=== PATIENT | male | born 1965 | race African-American/Black ===

== ENCOUNTER 2021-08-02 05:47 | Inpatient (IN) | payer OTHER, SELFPAY ==
[2021-08-02] VITALS (41 sets, daily range): BP systolic 98–122; BP diastolic 53–89; PULSE 90–158; RESP 20–110; TEMP 36.3–39; O2SAT 50–100
--- NOTE | ~2021-08-02 | XR_ITS ---
XR abdomen NG/feed tube insert DATE: 08/03/2021 22:36 INDICATION: Nasogastric/orogastric tube placement TECHNIQUE: Portable AP view on 08/03/2021 at 2230 hours COMPARISON: None FINDINGS: Nasogastric tube is coiled within the stomach, distal tip overlying gastric antrum. Severe patchy consolidating pulmonary infiltrates IMPRESSION: NG tube in stomach Reviewed, dictated and finalized at [facility]. Reviewed, dictated and finalized at [facility]. IMPRESSION: NG tube in stomach
--- NOTE | ~2021-08-02 | XR_ITS ---
XR chest PICC line DATE: 08/03/2021 13:37 INDICATION: Right upper extremity PICC line placement TECHNIQUE: Portable AP chest on 08/03/2021 at 1330 hours COMPARISON: 08/03/2021 portable AP chest at 1046 hours FINDINGS: Interval placement of right upper extremity PIC catheter, the tip overlying superior vena c nicolas. Severe diffuse patchy bilateral consolidating pulmonary infiltrates persist. No pneumothorax or pleur al effusion is evident. IMPRESSION: Right upper extremity PIC catheter tip overlies superior vena cava Reviewed, dictated and finalized at [facility]. Reviewed, dictated and finalized at [facility].
--- NOTE | ~2021-08-02 | XR_ITS ---
XR chest ET placement DATE: 08/03/2021 22:36 INDICATION: Intubation; evaluate ET tube position TECHNIQUE: Portable AP chest on 08/03/2021 at 2229 hours COMPARISON: 08/03/2021 portable AP chest at 1330 hours FINDINGS: ET tube tip is within 12 mm above the [place]. [place] range is 2 5 cm. Proximal repositioning is recommended. NG tube is noted in the stomach. Persistent severe patchy consolidating infiltrates throughout both lungs. IMPRESSION: ET tube 12 mm above [place]; ideal range is 2-5 cm Reviewed, dictated and finalized at [facility]. Reviewed, dictated and finalized at [facility].
--- NOTE | ~2021-08-02 | XR_ITS ---
XR chest 1V portable DATE: 08/04/2021 05:29 INDICATION: Respiratory failure TECHNIQUE: Portable AP chest on 08/04/2021 at 0521 hours COMPARISON: 08/03/2021 portable AP chest at 2229 hours FINDINGS: ET tube in satisfactory position 3.2 cm above [place]. NG tube in stomach. Right upper extremity PIC catheter in superior vena cava. Persistent severe diffuse bilateral patchy consolidating infiltrates throughout both lungs. IMPRESSION: Persistent severe diffuse bilateral pulmonary patchy consolidating infiltrates Reviewed, dictated and finalized at [facility].
--- NOTE | ~2021-08-02 | XR_ITS ---
XR chest 1V portable DATE: 08/03/2021 10:52 INDICATION: Pneumonia TECHNIQUE: Portable upright AP view on 08/03/2021 at 1046 hours COMPARISON: 08/02/2021 portable AP chest at 0634 hours FINDINGS: Severe patchy consolidating infiltrates persist throughout both lungs, without improvement since 08/02/2021. No pleural effusion is evident. No pneumothorax is detected. IMPRESSION: Persistent severe diffuse patchy consolidating infiltrates throughout both lungs Reviewed, dictated and finalized at location [facility]. IMPRESSION: Persistent severe diffuse patchy consolidating infiltrates througho ut both lungs
--- NOTE | ~2021-08-02 | XR_ITS ---
XR chest 1V portable DATE: 08/02/2021 06:38 INDICATION: Shortness of breath TECHNIQUE: Portable AP chest on 08/02/2021 at 0634 hours COMPARISON: None FINDINGS: There are extensive patchy consolidating infiltrates throughout both lungs. Differential di agnosis includes pulmonary edema, pneumonia. Pulmonary mass lesions including metastatic disease are not excluded. Cardiomegaly. Diffuse osteopenia. Mild dextroscoliosis of the thoracic spine. Diffuse idiopathic skeletal hyperostosis of the thoracic spine. IMPRESSION: Extensive patchy consolidating infiltrates throughout both lungs. Pulmonary mass lesions are not excluded. Cardiomegaly Reviewed, dictated and finalized at location [facility]. IMPRESSION: Extensive patchy consolidating infiltrates throughout both lungs. P ulmonary mass lesions are not excluded. Cardiomegaly
--- NOTE | 2021-08-02 05:52 | ECG_ITS ---
Measurements Intervals [place] Rate: 156 P: NV: 0 QRS: 9 QRSD: 96 T: 242 QT: 311 QTc: 501 Interpretive Statements ATRIAL FLUTTER/TACHYCARDIA WITH RAPID VENTRICULAR RESPONSE CONSIDER INFERIOR INFARCT, AGE INDETERMINATE BORDERLINE ST-T WAVE ABNORMALITY- ANTEROLAT/HIGH LAT LEADS ABNORMAL ECG Electronically Signed On 08-02-2021 15:54:52 CDT by Tj Koroma D.O.
[2021-08-02] MEDS: METOPROLOL TARTRATE INJ 5 MG/5 ML VIAL IV PUSH ×2 (06:08→06:29)
[2021-08-02 06:11] LABS: Basophils Absolute Auto 0.1 K/mm3 (0.0-0.1); Basophils Percent Auto 0.3 % (0.2-1.2); Eosinophils Percent Auto 0.3 % (0-4.4); Hematocrit 38.7 % (42.0-52.0); Hemoglobin 12.3 g/dL (14.0-18.0); Immature Granulocyte Absolute 0.09 K/mm3 (0.00-0.031); Immature Granulocyte Percent A 0.6 % (0-0.5); Lymphocytes Absolute Auto 0.89 K/mm3 (0.9-3.2); Lymphocytes Percent Auto 5.9 % (18.3-44.2); Mean Corpuscular HGB Conc 31.8 g/dl (32-36); Mean Corpuscular Hemoglobin 30.8 pg (26-34); Mean Corpuscular Volume 96.8 fl (80-100); Mean Platelet Volume 10.5 fl (7.4-10.4); Monocytes Absolute Auto 0.9 K/mm3 (0.1-0.6); Monocytes Percent Auto 5.9 % (2.6-8.5); Neutrophils Absolute Auto 13.1 K/mm3 (1.3-6.7); Platelet Count Result 291 k/mm3 (150-375); Red Cell Distribution Width 14.6 % (11.5-14.5)
[2021-08-02 06:17] LABS: Alveolar/Arterial O2 Gradient 525.8 mmHg; Base Excess ABG -2.1 mEq/l (+/-2.0); Carboxyhemoglobin 1.2 % THb (0-2.0); Fractional Inspired Oxygen 100 %; HCO3 ABG 21.6 mEq/l (22.0-26.0); Methemoglobin ABG 0.3 %THb (0-1.5); Oxygen Content ABG 17.2 %vol (16.0-22.0); Oxyhemoglobin 97.2 % THb (90.0-100.0); PCO2 ABG 33.5 mmHg (35.0-45.0); PO2 ABG 153.7 mmHg (80.0-100.0); PO2 FiO2 Ratio Arterial Blood 1.54 %; Reduced Hemoglobin 1.3 %THb (0-5.0); Total Hemoglobin 12.4 g/dL (12.0-18.0); pH ABG 7.427 (7.350-7.450)
[2021-08-02 06:18] LABS: Device NON-INVASIVE VENT; Modified Allen's Test Pass; Non-Invasive Expiratory Pressure 6 CMH2O; Non-Invasive Inspiratory Pressure 12 CMH2O; Non-Invasive Vent Rate 20 /MIN; Site Drawn LEFT RADIAL
[2021-08-02 06:20] LABS: Alanine Aminotransferase 33 U/L (6-50); Albumin Level 3.9 g/dL (3.5-5.1); Alkaline Phosphatase 166 U/L (38-126); Anion Gap 7 mmol/L (8-16); Aspartate Amino Transferase 56 U/L (17-59); Bilirubin,Total 0.8 mg/dL (0.2-1.3); Blood Urea Nitrogen 27 mg/dL (9-20); Calcium 9.1 mg/dL (8.4-10.2); Carbon Dioxide 25 mmol/L (22-30); Chloride 104 mmol/L (98-107); Estimated CRCL calculation 96 ml/min; Estimated Glomerular Filt Rate > 60; Glucose 111 mg/dL (65-110); Sodium 136 mmol/L (137-145)
[2021-08-02 06:22] LABS: INR 2.3; Prothrombin Time 24.9 Seconds (11.1-14.7)
[2021-08-02 06:23] LABS: Partial Thromboplastin Time 49.1 SECONDS (22.3-36.8)
--- NOTE | 2021-08-02 06:26 | ED.SOB ---
HPI - SOB/Dyspnea General Chief Complaint: Shortness of Breath/Dyspnea <Surya Boswell MD - Last Filed: 08/02/21 06:56> Stated Complaint: sob x 2 days on cpap 90-95% <Surya Boswell MD - Last Filed: 08/02/21 06:56> Time Seen by Provider: 08/02/21 06:58 <Surya Boswell MD - Last Filed: 08/02/21 06:56> History of Present Illness HPI Narrative: Patient is a 56-year-old male with history of CHF who is also oxygen dependent that presents ER with shortness of breath. Reports shortness of breath worsening over the last 2 days. Associated with racing heart. Has history of atrial flutter. Sees a apple checker at [facility]. Picked up by EMS and patient's oxygen saturation was in the 80s. Denies fevers or chills or sweats. Reports some chest tightness. Denies nausea vomiting. No lower extremity swelling. Reports recently hospitalized related to get a lot of fluid off so he could breathe better. Patient receives his care at [facility]. Apparently patient has lung injury from previous COVID infection as well. <Surya Boswell MD - Last Filed: 08/02/21 06:56> Related Data Allergies/Adverse Reactions: Allergies Allergy/AdvReac Type Severity Reaction Status Date / Time No Known Allergies Allergy Verified 08/02/21 07:46 <Surya Boswell MD - Last Filed: 08/02/21 06:56> Review of Systems Review of Systems: All systems reviewed & are unremarkable except as noted in HPI and below <Surya Boswell MD - Last Filed: 08/02/21 06:56> Constitutional: Constitutional: Denies chills, Denies fatigue and Denies fever(s) <Surya Boswell MD - Last Filed: 08/02/21 06:56> ENT: Denies nasal congestion and Denies sore throat <Surya Boswell MD - Last Filed: 08/02/21 06:56> Cardiovascular: Cardiovascular: Reports chest pain, Reports rapid heart rate and Denies radiating jaw, neck or arm pain <Surya Boswell MD - Last Filed: 08/02/21 06:56> Respiratory: Respiratory: Denies chest congestion, Denies cough, Reports dyspnea and Reports wheezing <Surya Boswell MD - Last Filed: 08/02/21 06:56> Gastrointestinal: Gastrointestinal: Denies abdominal pain, Denies nausea and Denies vomiting <Surya Boswell MD - Last Filed: 08/02/21 06:56> Musculoskeletal: Musculoskeletal: Denies back pain and Denies myalgias <Surya Boswell MD - Last Filed: 08/02/21 06:56> Neurologic: Denies syncope and Denies headache(s) <Surya Boswell MD - Last Filed: 08/02/21 06:56> PMFSH Past Medical History Medical History: Medical History (Updated 08/02/21 @ 07:48 by Stacey Shaw MD) Atrial flutter Congestive heart failure COPD (chronic obstructive pulmonary disease) Oxygen dependent 2.5 to 3 L GERD (gastroesophageal reflux disease) Hypertension <Surya Boswell MD - Last Filed: 08/02/21 06:56> Surgical History Surgical History: Surgical History (Updated 08/02/21 @ 06:31 by Surya Boswell MD) No history of previous surgery <Surya Boswell MD - Last Filed: 08/02/21 06:56> Social History Social History: Social History (Updated 08/02/21 @ 06:32 by Surya Boswell MD) Social History: Non-smoker <Surya Boswell MD - Last Filed: 08/02/21 06:56> Exam Narrative: GENERAL: Uncomfortable-appearing, well-nourished, and in mild distress. HEAD: Normocephalic, atraumatic. EYES: PERRL and EOMI. ENT: Mucous membranes moist. CHEST: Scant faint wheezing worse at bases. Increased respiratory rate. HEART: Tachycardic and regular. Normal peripheral pulses. ABDOMEN: Soft, nontender, nondistended. EXTREMITIES: Normal range of motion. No edema. SKIN: Warm, dry, no rash. NEURO: Alert and oriented x3. PSYCH: Normal mood and affect. <Surya Boswell MD - Last Filed: 08/02/21 06:56> Course Course Emergency Course: Patient signed out to me as history of A. flutter, presenting with dyspnea in RVR. He is started on Cardizem push and d
[2021-08-02 06:38] LABS: NT Pro B Type Natriuretic Pept 3270 pg/mL (5-100); Troponin I 0.016 ng/mL (0.000-0.034)
[2021-08-02] MEDS: FUROSEMIDE INJ 40 MG/4 ML VIAL IV PUSH ×2 (06:57→16:07)
[2021-08-02] MEDS: dilTIAZem 100 MG/100 ML 100 MG/100 ML BAG IV CONT (07:00)
[2021-08-02] MEDS: dilTIAZem HCl INJ 25 MG/5 ML VIAL 10 MG IV PUSH ×2 (07:00→08:07)
[2021-08-02] MEDS: cefTRIAXone 2 GM in SODIUM CHLORIDE 0.9% IV 100 ML 200 ML IVPB (07:53)
--- NOTE | 2021-08-02 09:38 | ADMGEN ---
This patient, Austyn Alfonso, was admitted to IMU Room 210-01 at 0933. Patient/family oriented to hospital policies and general routines including ID bracelet, bed and alarms, visiting hours, pain management, procedures, bathroom and other care routines, personal items, smoking policy, room service/diet, and visiting hours. Information on how to activate the Rapid Response Team has been discussed. Patient/Family are encouraged to report perceived risks to care and to ask questions if they do not understand what they are told or what they should do.
[2021-08-02] MEDS: WATER FOR IRRIGATION, STERILE 1,000 ML BOTTLE 1000 ML (11:48)
[2021-08-02] MEDS: METOPROLOL TARTRATE TAB 25 MG, METOPROLOL TARTRATE TAB 12.5 MG 37.5 MG PO ×2 (14:56→21:42)
--- NOTE | 2021-08-02 15:29 | PM.CNCAR ---
Assessment and Plan Assessment and plan (1) Atrial flutter with rapid ventricular response: Code(s): I48.92 - Unspecified atrial flutter Status: Acute Assessment and Plan: Heart rate control strategy with medications for now. Patient may require repeat CORNEL guided cardioversion to restore sinus rhythm if refractory and or poorly tolerating medications. Heart rate controlled at this time will attempt to wean diltiazem and escalate oral metoprolol. Continue systemic anticoagulation with Xarelto for stroke risk reduction If heart rate poorly controlled will need to resume diltiazem infusion. (2) Acute on chronic heart failure with preserved ejection fraction: Code(s): I50.33 - Acute on chronic diastolic (congestive) heart failure Status: Acute Assessment and Plan: History preserved LV systolic function EF 55-60% by echocardiogram 06/04/2021 at [facility]. Likely multifactorial decompensation secondary to probable worsening respiratory status, possible pneumonia as well as development of atrial flutter with RVR. Continue IV diuresis, accurate input and output, daily weight. CHF counseling/management. (3) Chronic respiratory failure with hypoxia: Code(s): J96.11 - Chronic respiratory failure with hypoxia Status: Acute Assessment and Plan: O2 supplementation, bronchodilator therapy. Antibiotics per primary service. He had a recent CT as documented in HPI. Chest x-ray findings as reported appear to be consistent in that regard. Patient reports problems requiring O2 supplementation since severe infection with COVID and associated lung injury. (4) COVID-19 long hauler manifesting chronic dyspnea: Code(s): R06.09 - Other forms of dyspnea; U09.9 - Post COVID-19 condition, unspecified Status: Acute Assessment and Plan: As above. (5) HTN (hypertension), benign: Code(s): I10 - Essential (primary) hypertension Status: Acute Assessment and Plan: Stable. Continue ARB as BP and renal function permit. (6) MANUELA on CPAP: Code(s): G47.33 - Obstructive sleep apnea (adult) (pediatric); Z99.89 - Dependence on other enabling machines and devices Status: Acute Assessment and Plan: Compliance with CPAP. (7) Morbid obesity with BMI of 40.0-44.9, adult: Code(s): E66.01 - Morbid (severe) obesity due to excess calories; Z68.41 - Body mass index [BMI] 40.0-44.9, adult Status: Acute Assessment and Plan: Lifestyle modification, weight loss. History of Present Illness History of Present Illness Consult date/time: Date of service: 08/02/21 15:29 Requesting physician: Stacey Shaw MD Reason For Visit: Aflutter in rvr/dyspnea/hypoxia Narrative: Patient is a very pleasant 56-year-old gentleman recently discharged from [place] for A/C HFpEF followed by Dr. Yusuf (Cardiology) with past medical history significant for paroxysmal atrial flutter status post CORNEL guided cardioversion, hypertension, chronic hypoxic respiratory failure on home oxygen history of COVID respiratory failure, MANUELA on CPAP, mild pulmonary hypertension who was discharged approximately 1 week ago when he noted gradual progression fatigue, exertional dyspnea particularly the preceding 2 days associated with rapid heart rate. He states he was in sinus rhythm during last hospitalization where he was initially diagnosed with atrial flutter proximally 2 months ago and had been maintaining sinus rhythm status post cardioversion. He claims compliance with medications and CPAP with exception of the past 2 nights due to his shortness of breath. He was unable to walk across the room without having to stop prior to admission. He denies chest pain, near-syncope or syncope. No bleeding, recent fevers, chills or other illnesses. Upon arrival of EMS he was noted be hypoxic with oxygen saturations 80s. He wears chronic O2 3 L at home and has been compliant. He reports some ti
[2021-08-02] MEDS: FAMOTIDINE 20 MG TABLET PO (16:05)
[2021-08-02] MEDS: RIVAROXABAN 20 MG TABLET PO (16:07)
[2021-08-02] MEDS: ACETAMINOPHEN 325 MG TABLET 650 MG PO (16:34)
[2021-08-02 18:14] LABS: SARS-CoV-2 RNA PCR Negative
--- NOTE | 2021-08-02 20:41 | PM.IMHP ---
H&P: HPI History of Present Illness Date/Time: Patient was placed observation status for expected length of stay less than 23 hours for management, will plan to re-evaluate tomorrow for improvement. 08/02/21 1230 Chief Complaint: Shortness of breath Narrative: Mr. Alfonso is a 56-year-old gentleman who presented emergency room with complaints of shortness of breath that began a few days ago. Patient states that he does wear oxygen at home at 2-1/2-3 L since he had COVID in September of 2020. Patient states that over the last few days he has had increasing shortness of breath but this morning was significantly worsened he called EMS to come to the emergency room for further evaluation. Patient denies being told or being aware of having any coronary artery disease, myocardial infarction, or stroke. Denies any cough. Patient states he does have a history of congestive heart failure and does weigh himself daily and has had no significant weight gain. Upon evaluation in emergency room patient was noted to be in atrial fibrillation with rapid ventricular response. Patient was placed on a Cardizem drip and Cardiology was consulted. Patient's chest x-ray also showed extensive patchy consolidating infiltrates throughout both lungs. Pulmonary mass lesions are not excluded. Cardiomegaly. Initially patient was placed on BiPAP and he could not tolerate the BiPAP and was placed on high-flow oxygen and his saturations have been doing very well. Patient denied any lightheadedness, dizziness, syncopal, or near syncopal episodes. Patient denied any palpitations or racing of his heart and states that he has just had shortness of breath that has been increasing. Patient has a known history of congestive heart failure diastolic in type, hypertension, atrial fibrillation status post CORNEL guided cardioversion, chronic hypoxic respiratory failure on home oxygen with a history of COVID respiratory failure, obstructive sleep apnea with compliance of CPAP use, and mild pulmonary hypertension. Review of Systems Review of Systems: A 12 point review of systems was completed patient all pertinent positive and negative per HPI the remainder are unremarkable. 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 GERD (gastroesophageal reflux disease) HTN (hypertension), benign Hypertension MANUELA on CPAP Surgical History Surgical History No history of previous surgery Family History Family History Mother Cancer Sibling Cancer Father Cancer Social History Social History Social History: Non-smoker Smoking status: Never smoker Second hand tobacco smoke exposure: No Alcohol intake: former Substance use: never Spiritual care concerns: No Meds Home Medications and Allergies Home Medications Medication Instructions Recorded Confirmed Type albuterol 90 mcg/actuation aerosol 2 mcg inhalation PRN PRN Wheezing 08/02/21 08/02/21 History inhaler allopurinol 300 mg tablet 1 tablet PO DAILY 08/02/21 08/02/21 History cholecalciferol (vitamin D3) 125 125 mcg PO DAILY 08/02/21 08/02/21 History mcg (5,000 unit) tablet dicyclomine 10 mg capsule 1 cap PO TIDWMEAL 08/02/21 08/02/21 History famotidine 20 mg tablet 1 tablet PO BID 08/02/21 08/02/21 History ferrous sulfate 325 mg (65 mg 1 tablet PO DAILY 08/02/21 08/02/21 History iron) tablet (FeroSul) furosemide 40 mg tablet 1 tablet PO BID 08/02/21 08/02/21 History losartan 25 mg tablet 1 tablet PO DAILY 08/02/21 08/02/21 History metoprolol tartrate 25 mg tablet 1 tablet PO BID 08/02/21 08/02/21 History montelukast
[2021-08-02] MEDS: MONTELUKAST SODIUM 10 MG TABLET PO (21:42)
[2021-08-02] MEDS: dilTIAZem 100 MG/100 ML 100 MG/100 ML BAG 15 MG IV CONT (23:08)
[2021-08-03] VITALS (41 sets, daily range): BP systolic 88–133; BP diastolic 53–91; PULSE 91–152; RESP 24–56; TEMP 36.3–38.1; O2SAT 89–97
--- NOTE | 2021-08-03 01:43 | PCRCNOTE ---
RT found pt breathing 45-60 times a minute with saturations in the high 80's and low nineties. Pt was on a CPAP of 7, 60% Fi02. RT increased CPAP to 9, Fi02 80%. Pt was still breathing 45-60 BPM after the change. Per DR's orders, I switched the patient over to 10/5 RR 18 and 80% Fi02. Pt's saturations increased to 97%. Pt has a respiratory rate of 55, DR witnessed and made the decision to administer Ativan per RN.
--- NOTE | 2021-08-03 01:47 | PC.NURSE ---
0130 08/03/21 Dr Acevedo and Selina Alarcon RT assessing patient. Patient on bipap breathing 40-50 respirations per minute. Pt able to have conversation and states he feels better than when he first came in. Intubation status discussed and patient is weighing options if WOB does not improve or deteriorates. At this time patient wants to stay on bipap and doesn't think he would want to be on a ventilator but will discuss with family today.
[2021-08-03] MEDS: IPRATROPIUM BR 0.02% INH SOLN 0.5 MG/2.5 ML VIAL INHALATION (02:06)
[2021-08-03] MEDS: ALBUTEROL SULFATE NEB 2.5 MG/3 ML INH INHALATION (02:06)
[2021-08-03] MEDS: LORazepam INJ (*CRX) 2 MG/ML VIAL 0.5 MG IV PUSH (03:49)
[2021-08-03] MEDS: dilTIAZem 100 MG/100 ML 100 MG/100 ML BAG 15 MG IV CONT ×3 (04:45→17:54)
[2021-08-03 05:05] LABS: Basophils Percent Auto 0.2 % (0.2-1.2); Eosinophils Absolute Auto 0.1 K/mm3 (0-0.3); Eosinophils Percent Auto 0.4 % (0-4.4); Hematocrit 36.9 % (42.0-52.0); Hemoglobin 11.6 g/dL (14.0-18.0); Immature Granulocyte Absolute 0.09 K/mm3 (0.00-0.031); Immature Granulocyte Percent A 0.6 % (0-0.5); Lymphocytes Absolute Auto 1.16 K/mm3 (0.9-3.2); Lymphocytes Percent Auto 7.2 % (18.3-44.2); Mean Corpuscular HGB Conc 31.4 g/dl (32-36); Mean Corpuscular Hemoglobin 30.6 pg (26-34); Mean Corpuscular Volume 97.4 fl (80-100); Mean Platelet Volume 10.5 fl (7.4-10.4); Monocytes Absolute Auto 1.4 K/mm3 (0.1-0.6); Monocytes Percent Auto 8.5 % (2.6-8.5); Neutrophils Absolute Auto 13.4 K/mm3 (1.3-6.7); Neutrophils Percent Auto 83.1 % (45.5-73.1); Platelet Count Result 252 k/mm3 (150-375); Red Blood Count 3.79 M/mm3 (4.6-6.20); Red Cell Distribution Width 14.4 % (11.5-14.5); White Blood Count 16.1 K/mm3 (4.5-10.0)
[2021-08-03 05:18] LABS: Alanine Aminotransferase 31 U/L (6-50); Albumin Level 3.9 g/dL (3.5-5.1); Alkaline Phosphatase 124 U/L (38-126); Anion Gap 6 mmol/L (8-16); Aspartate Amino Transferase 56 U/L (17-59); Bilirubin,Total 1.9 mg/dL (0.2-1.3); Blood Urea Nitrogen 24 mg/dL (9-20); Calcium 9.1 mg/dL (8.4-10.2); Carbon Dioxide 29 mmol/L (22-30); Chloride 100 mmol/L (98-107); Estimated CRCL calculation 105 ml/min; Estimated Glomerular Filt Rate > 60; Glucose 101 mg/dL (65-110); Magnesium 1.8 mg/dL (1.6-2.3); Potassium 4.4 mmol/L (3.4-5.0); Sodium 135 mmol/L (137-145)
[2021-08-03] MEDS: FUROSEMIDE INJ 40 MG/4 ML VIAL IV PUSH (06:08)
[2021-08-03] MEDS: METOPROLOL TARTRATE TAB 25 MG, METOPROLOL TARTRATE TAB 12.5 MG 37.5 MG PO (06:08)
[2021-08-03] MEDS: hydrOXYzine HCL 25 MG TABLET PO (06:11)
[2021-08-03] MEDS: CHOLECALCIFEROL 1,000 UNITS TABLET 5000 UNITS PO (08:04)
[2021-08-03] MEDS: FAMOTIDINE 20 MG TABLET PO (08:04)
[2021-08-03] MEDS: POTASSIUM CHLORIDE 20 MEQ TABLET.ER PO (08:04)
[2021-08-03] MEDS: allopurinoL 300 MG TABLET PO (08:04)
[2021-08-03] MEDS: FERROUS SULFATE 324 MG TABLET PO (08:05)
[2021-08-03] MEDS: FLUTICASONE/UMECLIDIN/VILANTER 100-62.5-25 MCG ELLIPTA 1 PUFF INHALATION (08:10)
--- NOTE | 2021-08-03 10:22 | PM.IMPN ---
Progress Note: A&P Assessment and Plan (1) Atrial flutter with rapid ventricular response: Code(s): I48.92 - Unspecified atrial flutter Status: Acute Assessment and Plan: Cardiology has been consult and do appreciate further recommendations. Patient is currently on a Cardizem drip and Cardiology is recommending to increase patient's metoprolol and wean Cardizem drip off. Patient is already on anticoagulation and will continue with home anticoagulation. Patient has undergone a previous CORNEL guided cardioversion and Cardiology states they may have to do this in a patient's heart rate cannot be controlled medication. (2) Acute on chronic heart failure with preserved ejection fraction: Code(s): I50.33 - Acute on chronic diastolic (congestive) heart failure Status: Acute Assessment and Plan: Will start Lasix 40 mg IV b.i.d. to assist with diuresis. Will have daily weights and accurate I&Os. (3) HTN (hypertension), benign: Code(s): I10 - Essential (primary) hypertension Status: Acute Assessment and Plan: Will resume patient's home medications once verified home medication list and adjust medications accordingly for optimal blood pressure control. (4) Community acquired pneumonia: Code(s): J18.9 - Pneumonia, unspecified organism Status: Acute Assessment and Plan: Patient did receive azithromycin as well as Rocephin in the emergency room. Will continue with current regimen with patient receiving antibiotics every 24 hours. Have requested records from [facility] since patient has never been at this establishment have no previous chest x-ray CT scan to compare today's chest x-ray to. Will have CT of chest without contrast performed when patient is able to tolerate lying flat. (5) Chronic respiratory failure with hypoxia: Code(s): J96.11 - Chronic respiratory failure with hypoxia Status: Acute Assessment and Plan: Patient's COVID was negative. Patient does have a leukocytosis and chest x-ray does show possible pneumonia. Patient is on high-flow oxygen at 15 L at this time. We will wean oxygen to keep saturations above 90%. Additional Plan 08/03/2021 Plan is to continue with oxygen support and IV antibiotics. Monitor culture and chest x-ray report. Subjective Date/time seen: 08/03/21 10:22 Patient was seen during the morning rounds today. Patient has mild shortness of breath. Patient is on BiPAP. No chest pain.No abdominal pain, nausea, no vomiting. Mood stable. Review of Systems Review of Systems: All systems reviewed & are unremarkable except as noted in HPI and below (The history and physical examination.) Exam Narrative: Constitutional: Patient is well-nourished in no acute distress. Patient is alert and oriented x3 HEENT: Moist mucous membranes. No scleral icterus. No lymphadenopathy. Neck: No carotid bruits noted no JVD noted Lungs: Patient has decreased lung sounds with fine crackles noted bilateral bases. Cardiovascular: Apical pulse is irregularly irregular, S1 variable S2, no S3-S4. Abdomen: Soft, round, and nontender. No palpable masses. Extremities: No edema. Nontender. Skin: No rashes or lesions. Warm and dry. Skin is intact. Neurological: No focal neurological deficits. Cranial nerves II-XII grossly intact. Psychiatric: Cooperative, appropriate mood, and affect Objective Data Vital Signs Vital Signs: Vital Signs - 24 hr 08/02/21 10:38 08/02/21 10:41 08/02/21 12:00 Temperature 36.8 C Pulse Rate 93 Respiratory Rate 40 H Blood Pressure 106/79 Pulse Oximetry 96 96 96 Oxygen Delivery High Flow Therapy with Na Oxygen Flow Rate 15 Fraction of Inspired Oxygen 08/02/21 12:00 08/02/21 12:00 08/02/21 14:38 Temperature Pulse Rate 97 126 H Respiratory Rate Blood Pressure Pulse Oximetry 96 95 Oxygen Delivery High Flow Therapy with Na Oxygen Flow Rate 15 Fraction of I
--- NOTE | 2021-08-03 11:18 | WPDCNINT ---
Assessment and Plan Assessment and plan (1) Acute and chronic respiratory failure with hypoxia: Code(s): J96.21 - Acute and chronic respiratory failure with hypoxia Status: Acute Assessment and Plan: Acute on chronic Respiratory failure which is multifactorial likely secondary to combination of pneumonia and heart failure. patient has underlying lung disease from COVID 19 infection that he had last year. He was on 3 L nasal cannula at baseline assistive of chronic lung disease. ARDS is another possibility chest x-ray shows diffuse bilateral infiltrates. elevated WBC and elevated BNP congestive heart failure may have been worsened due to aflutter with RVR COVID-19 PCR was negative check influenza check low urine Legionella and pneumococcal antigen continue broad-spectrum antibiotics Zosyn and Levaquin. Add vancomycin for Gram-positive coverage check sputum culture if able to obtain consult pulmonary patient currently on BiPAP and tachypneic. I have adjusted his settings to 15/8 and he is on 70% FiO2 I was start Precedex infusion for anxiolytics effect patient may need intubation and invasive mechanical ventilation. Patient until now has been refusing intubation and told me that he is not sure whether he wants are not. He wanted me to talk to his daughter. I spoke to patient's daughter by phone and she again wants to talk to her dad and is on her way to visit him. Will revisit this issue when she arrived to have a concrete plan in case his respiratory status further deteriorates or does not improve. ABG reviewed [place] CT angiogram of the chest 07/14/2021 prominent mediastinal lymph nodes increase compared to prior study 1.5 x 1.4 cm anterior mediastinal node adjacent to the ascending thoracic aorta likely reactive multifocal areas of interstitial thickening and ground-glass opacities again seen mildly increased in size and number pulmonary artery enlarged 4.7 cm, no pulmonary embolism. I will plan to obtain a repeat CT scan of the chest once patient is more stable or if he in case he gets intubated to allow safe transport to Radiology Request to obtain records from [facility] has been faxed Consult pulmonary (2) Atrial flutter with rapid ventricular response: Code(s): I48.92 - Unspecified atrial flutter Status: Acute Assessment and Plan: continue Cardizem infusion and p.o. metoprolol heart rate is in acceptable range at this time continue Xarelto I anticipate Precedex infusion will help with rate control (3) COVID-19 long hauler manifesting chronic dyspnea: Code(s): R06.09 - Other forms of dyspnea; U09.9 - Post COVID-19 condition, unspecified Status: Acute Assessment and Plan: patient on home O2 3 L by nasal cannula since since he had COVID last year (4) Community acquired pneumonia: Code(s): J18.9 - Pneumonia, unspecified organism Status: Acute Assessment and Plan: see above (5) Acute on chronic heart failure with preserved ejection fraction: Code(s): I50.33 - Acute on chronic diastolic (congestive) heart failure Status: Acute Assessment and Plan: echo 06/04/2021 EF 55-60% normal RV function mild pulmonary hypertension no significant valvular heart disease no pericardial effusion. symptoms may have been exacerbated by uncontrolled atrial flutter check echocardiogram adjust Lasix dose Additional Plan DVT prophylaxis - Xarelto Stress ulcer prophylaxis - change Pepcid to PPI IV Nutrition - NPO Total Critical Care Time - 40 minutes Due to a high probability of clinically significant, life threatening deterioration, the patient required my highest level of preparedness to intervene emergently and I personally spent this critical care time directly and personally managing the patient. This critical care time included obtaining a history; examining the patient; pulse oximetry; ordering and review
--- NOTE | 2021-08-03 12:00 | PC.NURSE ---
This patient, Austyn Alfonso, was received from [[id number]] on 08/03/21 at 1200. Patient/family oriented to unit policies and routines report received from Funmi Easley RN
[2021-08-03] MEDS: dexmedeTOMIDine 400 MCG/100 ML 400 MCG/100 ML BAG 6.92 MCG IV CONT (12:01)
[2021-08-03 12:40] LABS: Influenza A QL RT-PCR Negative (Negative); Influenza B QL RT-PCR Negative (Negative)
[2021-08-03] MEDS: levoFLOXacin 500 MG/D5W 100 ML 500 MG/100 ML BAG 100 MG IVPB (12:56)
--- NOTE | 2021-08-03 13:02 | PM.PNCARD ---
Progress Note: A&P Assessment and Plan (1) Acute and chronic respiratory failure with hypoxia: Code(s): J96.21 - Acute and chronic respiratory failure with hypoxia Status: Acute Assessment and Plan: Patient developed acute worsening respiratory failure no longer benefitting from noninvasive positive-pressure ventilation support. Discussed with critical care. Transfer to ICU. Suspect patient will require intubation if unable to stabilized with noninvasive positive-pressure ventilation. Agree with IV diuretics, antibiotics, bronchodilator therapy. Checks x-ray again reveals severe bilateral infiltrates. Repeat CT chest. He has required O2 supplementation since severe infection with COVID and associated lung injury which is likely complicating clinical picture. ARDS another consideration. Check ABG. Defer to Critical Care in this regard. Patient is critically ill guarded prognosis. Blood cultures from 08/02 x2 negative to date. Continue broad-spectrum IV antibiotics. Spent 27 minutes in the care of this patient at bedside including discussions, examination, chart review, medical decision-making, and documentation. (2) Atrial flutter with rapid ventricular response: Code(s): I48.92 - Unspecified atrial flutter Status: Acute Assessment and Plan: Heart rate control strategy with medications for now. Patient may require repeat CORNEL guided cardioversion to restore sinus rhythm if refractory and or poorly tolerating medications. Heart rate controlled at this time continue diltiazem infusion and or metoprolol as able to tolerate. Heart rate no doubt driven by acute on chronic respiratory failure. Systemic anticoagulation with Xarelto for stroke risk reduction. (3) Acute on chronic heart failure with preserved ejection fraction: Code(s): I50.33 - Acute on chronic diastolic (congestive) heart failure Status: Acute Assessment and Plan: History preserved LV systolic function EF 55-60% by echocardiogram 06/04/2021 at [facility]. Likely multifactorial decompensation secondary to probable worsening respiratory status, possible pneumonia as well as development of atrial flutter with RVR. Continue IV diuresis, increased to 40 mg IV q.8 hours accurate input and output, daily weight. I do not believe decompensated heart failure is patient's primary respiratory insult but certainly has a degree of accompanying heart failure. Respiratory failure is multifactorial. (4) COVID-19 long hauler manifesting chronic dyspnea: Code(s): R06.09 - Other forms of dyspnea; U09.9 - Post COVID-19 condition, unspecified Status: Acute Assessment and Plan: As above. (5) HTN (hypertension), benign: Code(s): I10 - Essential (primary) hypertension Status: Acute Assessment and Plan: Stable. Continue ARB as BP and renal function permit. (6) MANUELA on CPAP: Code(s): G47.33 - Obstructive sleep apnea (adult) (pediatric); Z99.89 - Dependence on other enabling machines and devices Status: Acute Assessment and Plan: Patient reports compliance with CPAP and O2 as an outpatient (7) Morbid obesity with BMI of 40.0-44.9, adult: Code(s): E66.01 - Morbid (severe) obesity due to excess calories; Z68.41 - Body mass index [BMI] 40.0-44.9, adult Status: Acute Assessment and Plan: Lifestyle modification, weight loss. Subjective Date/time seen: Date of service: 08/03/21 11:05 Follow-up for atrial flutter with RVR, shortness of breath/CHF, acute respiratory failure Patient before confused, tachypneic and short of breath on BiPAP. Patient answering questions appropriately but somewhat more lethargic breathing around 50 respirations per minute. Denies chest pain. Denies feeling particularly short of breath or worse than yesterday however clearly he is having more difficulty. He was febrile yesterday afternoon. He remains tachycardic with heart rates in t
--- NOTE | 2021-08-03 13:11 | PC.NURSE ---
This patient, Austyn Alfonso, was transferred to ICU 10 on 08/03/21 at 1200. Personal belongings sent with patient. Report given to Karen. Appropriate documentation sent with patient.
[2021-08-03] MEDS: CENTRAL LINE FLUSH 10 ML IV PUSH ×2 (14:00→23:22)
[2021-08-03 16:12] LABS: Procalcitonin 2.2 ng/mL
--- NOTE | 2021-08-03 22:25 | WPDPROCEDUR ---
Procedures Intubation Intubation Date: 08/03/21 Intubation Time: 22:18 Sedative: etomidate Mg given: 40 Paralytic: succinylcholine Mg given: 100 Laryngoscope: fiber optic video scope ET tube size: 8 Tube secured depth (cm): 28 Tube secured location: lips Tube placement confirmation: visualized tube passing through cords, equal breath sounds bilaterally, no breath sounds over epigastrium and confirmation by capnometry Patient tolerated procedure: other Intubation complications: hypoxia Additional comments: Patient was preoxygenated on BiPAP 18/10. Sats 92% at start of procedure. The patient did have set down to 76% briefly and his tongue was falling into his airway. Patient was intubated with an 8.0 ET tube to care 28 cm at the lip. With hyperventilation and PEEP valve of 15 patient's oxygen saturations improved rapidly up to 90%. Patient was placed on the vent with PEEP of 800% FiO2 and 5 minutes after intubation patient's sats were 90%.
--- NOTE | 2021-08-03 22:29 | PM.EVENT ---
Event Note Event Note Event Note: 08/03/2021 at 22:15 Nursing staff notified me the patient's respiratory rate was climbing tube 60. His heart rate had jumped to the 140s. He was remained in a flutter. Patient had accessory muscle use with increased work of breathing. The risks and benefits of of intubation were discussed with the patient at bedside. The patient's daughter was notified as to the patient's change in condition. The patient agreed to intubation. The patient was provided with sedation with etomidate and paralytic with succinylcholine. He was intubated using glide scope. Patient did briefly drop oxygen saturations to 76% but improved with intubation. The patient was hypoxic for less than 3 minutes. Patient was given 1 dose of rocuronium post intubation. The patient was given 1 dose of Versed for increased sedation. I did discuss the patient's case with the loom winder tender. He recommended patient get another 4 mg of Versed. The patient was started on sedation with fentanyl and Versed infusions. Patient was placed on ventilator AC/CMV tidal volume 400 peep of 12 rate of 26 100% FiO2. Post intubation chest x-ray was reviewed and ET tube was 2 cm from the [place] ET tube was pulled back 2 cm will follow-up with repeat chest x-ray in a.m.. No pneumothorax visualized bilateral infiltrates noted. OG was placed with the tube curled in the stomach. OG with pulled back slightly as well. The patient will be started on Nimbex after adequate sedation. If had nursing staff increase the patient's Cardizem drip up to 20 as his heart rate was in the 150s prior to intubation. Patient's blood pressures have remained stable post intubation with the slowest post intubation blood pressure 126/80 systolic. 35 minute spent in critical care activities in exclusion of procedures. Due to a high probability of clinically significant, life threatening deterioration, the patient required my highest level of preparedness to intervene emergently and I personally spent this critical care time directly and personally managing the patient. This critical care time included obtaining a history; examining the patient; pulse oximetry; ordering and review of studies; arranging urgent treatment with development of a management plan; evaluation of patient's response to treatment; frequent reassessment; and discussions with other providers. It was exclusive of separately billable procedures and treating other patients and teaching time. Please see Assessment and Plan section and the rest of the note for further information on patient assessment and treatment.
[2021-08-03] MEDS: FENTANYL 2,500MCG/NS250ML(*CRX 2,500 MCG/250 ML BAG 12.5 MCG IV CONT (22:40)
[2021-08-03] MEDS: MIDAZOLAM 100MG/NS 100ML(*CRX) 100 MG/100 ML BAG 6 MG IV CONT (22:40)
[2021-08-03] MEDS: RAPID SEQUENCE INTUBATION KIT 1 EACH (23:00)
[2021-08-03] MEDS: CISATRACURIUM BESYLATE 200 MG in DEXTROSE 5% 80 ML 12.45 ML IV CONT (23:08)
[2021-08-03 23:33] LABS: Alveolar/Arterial O2 Gradient 494.3 mmHg; Base Excess ABG 2.2 mEq/l (+/-2.0); Carboxyhemoglobin 0.8 % THb (0-2.0); Fractional Inspired Oxygen 90 %; Methemoglobin ABG 0.2 %THb (0-1.5); Oxygen Content ABG 15.4 %vol (16.0-22.0); Oxygen Saturation ABG 92.1 % (95.0-100.0); Oxyhemoglobin 91.5 % THb (90.0-100.0); PO2 ABG 74.3 mmHg (80.0-100.0); PO2 FiO2 Ratio Arterial Blood 0.83 %; Reduced Hemoglobin 7.5 %THb (0-5.0); Total Hemoglobin 11.9 g/dL (12.0-18.0)
[2021-08-03 23:35] LABS: pH ABG 7.256 (7.350-7.450)
[2021-08-03 23:36] LABS: Arterial Blood Gas PEEP 12 cmH2O; Arterial Blood Gas Tidal Volume 400 ml; Arterial Blood Gas Vent Mode CMV; Arterial Blood Gas Ventilator rate 26 /MIN; Device VENTILATOR; Modified Allen's Test Pass; PCO2 ABG 71.3 mmHg (35.0-45.0); Site Drawn LEFT RADIAL
[2021-08-04] VITALS (37 sets, daily range): BP systolic 79–101; BP diastolic 55–67; PULSE 67–142; RESP 26–30; TEMP 37.4–37.9; O2SAT 94–100
--- NOTE | 2021-08-04 | ECHO_ITS ---
Patient Info Name: Austyn Alfonso Age: 56 years : 1965 Gender: Male Ht: 71 in Wt: 304 lbs BSA: 2.69 m2 HR: 112 bpm BP: 86 / 55 mmHg Heart Rhythm: Atrial Flutter Technical Quality: Fair Exam Date: 08/04/2021 7:26 AM Exam Location: [facility] Patient Status: Inpatient Admit Date: 08/03/2021 Staff Ordering Physician: Jaime Seaman MD Programmer Developer: Claudia Minor RDCS Attending Provider: Ashleigh Hines MD Exam Type: CA echo dop color flow w con Study Info Indications I50.21 - Acute systolic (congestive) heart failure Complete two-dimensional, color flow and Doppler transthoracic echocardiogram is performed with contrast to opacify the left ventricle and to improve the deliniation of the left ventricle endocardial borders. Contrast/Agitated Saline Contrast/Ag. Saline: Definity Amount: 4.00 ml Summary 1. Technically difficult study with limited views despite definity echo contrast enhancement. 2. Left ventricular chamber dimension is normal. 3. Left ventricular systolic function is normal, estimated at 55-60%. 4. There is mildly increased left ventricular wall thickness. 5. Left ventricular septal wall motion is abnormal with septal motion related to bundle branch block. 6. Left atrial chamber dimension is moderately enlarged. 7. Right atrial chamber dimension is moderate to severely enlarged. 8. There is mild mitral valve regurgitation. 9. There is moderate tricuspid valve regurgitation. 10. Moderate pulmonary hypertension, estimated pulmonary arterial systolic pressure is 52 mmHg. Left Ventricle Left ventricular chamber dimension is normal. Left ventricular systolic function is normal, estimated at 55-60%. There is mildly increased left ventricular wall thickness. Left ventricular septal wall motion is abnormal with septal motion related to bundle branch block. The left ventricular diastolic function is indeterminate. Technically difficult study with limited views despite definity echo contrast enhancement. Right Ventricle Right ventricular chamber dimension is normal. Right ventricular systolic function is reduced. Left Atria Left atrial chamber dimension is moderately enlarged. Right Atria Right atrial chamber dimension is moderate to severely enlarged. Aortic Valve The aortic valve is probable trileaflet. There is no aortic valve stenosis. There is no aortic valve regurgitation. Pulmonic Valve The pulmonic valve is not well visualized. There is trace pulmonic regurgitation. Mitral Valve The mitral valve has normal leaflets. There is mild mitral valve regurgitation. The mitral valve annulus is mildly calcified. Tricuspid Valve The tricuspid valve leaflets are normal. There is moderate tricuspid valve regurgitation. Moderate pulmonary hypertension, estimated pulmonary arterial systolic pressure is 52 mmHg. Pericardium/Pleural The pericardium appears epicardial fat pad. There is trivial pericardial effusion. Inferior Vena Cava Dilated inferior vena cava with >50% collapse upon inspiration consistent with elevated right atrial pressure, 10 mmHg. Aorta The aortic root size at the sinus of Valsalva is normal. There is mild aortic atherosclerosis. Left Ventricular Outflow Tract Name Value Normal
[2021-08-04] MEDS: SODIUM CHLORIDE 0.9% IV 1,000 ML 999 ML IV CONT ×2 (00:42→07:59)
[2021-08-04] MEDS: dilTIAZem 100 MG/100 ML 100 MG/100 ML BAG 15 MG IV CONT ×3 (00:42→08:35)
[2021-08-04] MEDS: IPRATROPIUM BR 0.02% INH SOLN 0.5 MG/2.5 ML VIAL INHALATION ×2 (02:36→08:09)
[2021-08-04 05:12] LABS: Alveolar/Arterial O2 Gradient 449.3 mmHg; Base Excess ABG 2.3 mEq/l (+/-2.0); Carboxyhemoglobin 0.3 % THb (0-2.0); Fractional Inspired Oxygen 90 %; HCO3 ABG 29.9 mEq/l (22.0-26.0); Methemoglobin ABG 0.4 %THb (0-1.5); Oxygen Saturation ABG 98.1 % (95.0-100.0); Oxyhemoglobin 97.2 % THb (90.0-100.0); PO2 ABG 127.7 mmHg (80.0-100.0); PO2 FiO2 Ratio Arterial Blood 1.42 %; Reduced Hemoglobin 2.1 %THb (0-5.0); Total Hemoglobin 10.1 g/dL (12.0-18.0)
[2021-08-04 05:21] LABS: PCO2 ABG 63.1 mmHg (35.0-45.0); pH ABG 7.293 (7.350-7.450)
[2021-08-04 05:22] LABS: Arterial Blood Gas PEEP 12 cmH2O; Arterial Blood Gas Tidal Volume 450 ml; Arterial Blood Gas Vent Mode CMV; Arterial Blood Gas Ventilator rate 28 /MIN; Device VENTILATOR; Modified Allen's Test Pass; Site Drawn LEFT RADIAL
[2021-08-04] MEDS: CENTRAL LINE FLUSH 10 ML IV PUSH ×2 (05:51→14:32)
[2021-08-04] MEDS: methylPREDNISolone SOD SUCC 125 MG VIAL 60 MG IV PUSH ×2 (05:52→14:31)
[2021-08-04 06:16] LABS: Hematocrit 30.1 % (42.0-52.0); Hemoglobin 9.1 g/dL (14.0-18.0); Mean Corpuscular HGB Conc 30.2 g/dl (32-36); Mean Corpuscular Hemoglobin 30.3 pg (26-34); Mean Corpuscular Volume 100.3 fl (80-100); Mean Platelet Volume 10.3 fl (7.4-10.4); Platelet Count Result 186 k/mm3 (150-375); Red Cell Distribution Width 14.3 % (11.5-14.5); White Blood Count 13.9 K/mm3 (4.5-10.0)
[2021-08-04 06:26] LABS: Alanine Aminotransferase 22 U/L (6-50); Albumin Level 3.2 g/dL (3.5-5.1); Alkaline Phosphatase 95 U/L (38-126); Anion Gap 2 mmol/L (8-16); Aspartate Amino Transferase 40 U/L (17-59); Bilirubin,Total 2.2 mg/dL (0.2-1.3); Blood Urea Nitrogen 27 mg/dL (9-20); Calcium 8.5 mg/dL (8.4-10.2); Carbon Dioxide 32 mmol/L (22-30); Chloride 100 mmol/L (98-107); Estimated CRCL calculation 71 ml/min; Estimated Glomerular Filt Rate 59; Glucose 120 mg/dL (65-110); Magnesium 1.8 mg/dL (1.6-2.3); Potassium 4.9 mmol/L (3.4-5.0); Sodium 134 mmol/L (137-145)
--- NOTE | 2021-08-04 07:12 | PC.NURSE ---
08/03/212199 Dr Dejesus notified of updated patient status. Heart rate sustaining in 130-140's at this time and respirations 50-60's. Patient and daughter agreeable to intubation. Patient states he is tired and feels that he cannot breathe . 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 See MD procedure note for further details. Case Advocate made aware
[2021-08-04] MEDS: PERFLUTREN LIPID MICROSPHERES 1.5 ML VIAL DILUTED TO 10 ML TOTAL VOLUME IV PUSH (07:26)
[2021-08-04] MEDS: allopurinoL 300 MG TABLET PO (08:08)
[2021-08-04] MEDS: CHOLECALCIFEROL 1,000 UNITS TABLET 5000 UNITS PO (08:08)
[2021-08-04] MEDS: PANTOPRAZOLE SODIUM IV 40 MG VIAL IV PUSH (08:08)
[2021-08-04] MEDS: MINERAL OIL/WHITE PETROLATUM OINTMENT 1 APPLIC EACH EYE (08:08)
[2021-08-04] MEDS: MAGNESIUM SULF 2 GM/WATER 50ML 2 GM/50 ML BAG IVPB (08:28)
[2021-08-04] MEDS: SODIUM CHLORIDE 0.9% IV 1,000 ML 100 ML IV CONT (08:37)
--- NOTE | 2021-08-04 09:46 | PM.PNCARD ---
Progress Note: A&P Assessment and Plan (1) Acute and chronic respiratory failure with hypoxia: Code(s): J96.21 - Acute and chronic respiratory failure with hypoxia Status: Acute Assessment and Plan: Patient with worsening respiratory status requiring intubation and mechanical ventilatory support. Patient developed acute worsening respiratory failure no longer benefitting from noninvasive positive-pressure ventilation support. Discussed with critical care. Transfer to ICU. Suspect patient will require intubation if unable to stabilized with noninvasive positive-pressure ventilation. Agree with IV diuretics, antibiotics, bronchodilator therapy. Checks x-ray again reveals severe bilateral infiltrates. Defer to Critical Care in this regard. Patient is critically ill with guarded prognosis. Blood cultures from 08/02 x2 negative to date. Continue broad-spectrum IV antibiotics. (2) Atrial flutter with rapid ventricular response: Code(s): I48.92 - Unspecified atrial flutter Status: Acute Assessment and Plan: Heart rate control strategy with medications for now as BP permits. Heart rate no doubt driven by respiratory failure. (3) Acute on chronic heart failure with preserved ejection fraction: Code(s): I50.33 - Acute on chronic diastolic (congestive) heart failure Status: Acute Assessment and Plan: History preserved LV systolic function EF 55-60% by echocardiogram 06/04/2021 at [facility]. Likely multifactorial decompensation secondary to probable worsening respiratory status, possible pneumonia as well as development of atrial flutter with RVR. Continue IV diuresis, increased to 40 mg IV q.8 hours accurate input and output, daily weight. I do not believe decompensated heart failure is patient's primary respiratory insult but certainly has a degree of accompanying heart failure. Respiratory failure is multifactorial. (4) HTN (hypertension), benign: Code(s): I10 - Essential (primary) hypertension Status: Acute Assessment and Plan: Hold antihypertensives due to relative hypotension Reduce diltiazem infusion to 10 milligrams/hour. We need to discontinue if worsening hypotension. Stress dose steroids. (5) Anemia: Code(s): D64.9 - Anemia, unspecified Status: Acute Assessment and Plan: Hemoglobin has declined 3 g over the past 48 hours. Follow H&H closely. Hold Xarelto for now, monitor for signs of bleeding. Stress ulcer protection IV ppi. (6) KENNEDI (acute kidney injury): Code(s): N17.9 - Acute kidney failure, unspecified Status: Acute Assessment and Plan: Secondary to hypotension, acute hypoxic respiratory failure. Avoid nephrotoxic agents. Monitor closely. Subjective Date/time seen: Date of service: 08/04/21 09:46 Follow-up for acute on chronic respiratory failure, CHF, atrial flutter Patient wanted worsening acute respiratory distress status post intubation. Remains in atrial flutter rate controlled. Relative hypotension this morning remains on diltiazem 15 milligrams/hour. Patient intubated and sedated unable to provide history. Review of Systems Review of Systems: All systems reviewed & are unremarkable except as noted in HPI and below ROS unobtainable: Yes unobtainable due to endotracheal tube and unobtainable due to medical condition Constitutional: Constitutional: Reports as per HPI and Reports no additional constitutional complaints Eyes: Eyes: Reports as per HPI and Reports no additional eye complaints ENT: Reports system reviewed and no additional complaints, except as documented and Reports as per HPI Cardiovascular: Cardiovascular: Reports as per HPI and Reports no additional cardiovascular complaints Respiratory: Respiratory: Reports as per HPI and Reports no additional respiratory complaints Gastrointestinal: Gastrointestinal: Reports as per HPI and Reports no additional gastrointestin
--- NOTE | 2021-08-04 10:29 | WPDINTPN ---
Progress Note: A&P Assessment and Plan (1) Acute and chronic respiratory failure with hypoxia: Code(s): J96.21 - Acute and chronic respiratory failure with hypoxia Status: Acute Assessment and Plan: Acute on chronic Respiratory failure which is multifactorial likely secondary to combination of pneumonia and heart failure. Patient has underlying lung disease from COVID 19 infection that he had last year. He was on 3 L nasal cannula at baseline assistive of chronic lung disease. he has been in and out of hospitals recently. ARDS is another likely possibility. Chest x-ray showed diffuse bilateral infiltrates. elevated WBC and elevated BNP Congestive heart failure may have been worsened due to aflutter with RVR COVID-19 PCR was negative Influenza was negative Pending urine Legionella and pneumococcal antigen Continue broad-spectrum antibiotics vancomycin, Zosyn and Levaquin. Check sputum culture if able to obtain Empiric steroids was started and will be continued Patient was placed on BiPAP for transfer to ICU he continued to deteriorate and was intubated overnight. sedated and chemically paralyzed at this time Vent settings reviewed currently on rate of 30, tidal volume of 450 peep of 12 and FiO2 of 70%. continue to wean FiO2 as possible ABG reviewed. Permissive hypercapnia [place] CT angiogram of the chest 07/14/2021 prominent mediastinal lymph nodes increase compared to prior study 1.5 x 1.4 cm anterior mediastinal node adjacent to the ascending thoracic aorta likely reactive multifocal areas of interstitial thickening and ground-glass opacities again seen mildly increased in size and number pulmonary artery enlarged 4.7 cm, no pulmonary embolism. I have spoken to Dr. Nikolai Self at [facility]. Patient will be transferred today once bed is available. I will hold on getting CT scan of the chest and defer further imaging and testing to the accepting physician team. Request to obtain records from [facility] has been faxed (2) Atrial flutter with rapid ventricular response: Code(s): I48.92 - Unspecified atrial flutter Status: Acute Assessment and Plan: continue Cardizem infusion heart rate is in acceptable range at this time continue Xarelto may need cardioversion (3) COVID-19 long hauler manifesting chronic dyspnea: Code(s): R06.09 - Other forms of dyspnea; U09.9 - Post COVID-19 condition, unspecified Status: Acute Assessment and Plan: patient on home O2 3 L by nasal cannula since since he had COVID last year (4) Community acquired pneumonia: Code(s): J18.9 - Pneumonia, unspecified organism Status: Acute Assessment and Plan: see above (5) Acute on chronic heart failure with preserved ejection fraction: Code(s): I50.33 - Acute on chronic diastolic (congestive) heart failure Status: Acute Assessment and Plan: echo 06/04/2021 EF 55-60% normal RV function mild pulmonary hypertension no significant valvular heart disease no pericardial effusion. symptoms may have been exacerbated by uncontrolled atrial flutter check echocardiogram hold further Lasix at this time (6) KENNEDI (acute kidney injury): Code(s): N17.9 - Acute kidney failure, unspecified Status: Acute Assessment and Plan: elevation in creatinine on labs today likely secondary to intravascular hypovolemia. Hold further diuretics. will give IV fluid bolus and cautious of IV fluids. Monitor urine output electrolytes and creatinine. Check CK level Additional Plan DVT prophylaxis - Xarelto Stress ulcer prophylaxis - change Pepcid to PPI IV Nutrition - start tube feeds Patient has been accepted at [facility] and will transfer once bed is available. patient's physician including single fold machine operator and international representative are at [facility]. He wanted to go there but EMS brought him to [facility]
[2021-08-04 10:56] LABS: Creatine Kinase < 20 U/L (55-170)
[2021-08-04 11:54] LABS: Glucose Point of Care 130 mg/dl (65-105)
[2021-08-04] MEDS: CISATRACURIUM BESYLATE 200 MG in DEXTROSE 5% 80 ML 8.3 ML IV CONT (12:10)
[2021-08-04] MEDS: levoFLOXacin 500 MG/D5W 100 ML 500 MG/100 ML BAG 100 MG IVPB (12:51)
[2021-08-04] MEDS: MIDAZOLAM 100MG/NS 100ML(*CRX) 100 MG/100 ML BAG 6 MG IV CONT (14:30)
--- NOTE | 2021-08-04 15:08 | PM.TDS ---
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 Patient has underlying lung disease from COVID 19 infection that he had last year. He was on 3 L nasal cannula at baseline assistive of chronic lung disease. he has been in and out of hospitals recently. ARDS is another likely possibility. Chest x-ray showed diffuse bilateral infiltrates. elevated WBC and elevated BNP Congestive heart failure may have been worsened due to aflutter with RVR COVID-19 PCR was negative Influenza was negative Pending urine Legionella and pneumococcal antigen Continue broad-spectrum antibiotics vancomycin, Zosyn and Levaquin. Check sputum culture if able to obtain Empiric steroids was started and will be continued Patient was placed on BiPAP for transfer to ICU he continued to deteriorate and was intubated overnight. sedated and chemically paralyzed at this time Vent settings reviewed currently on rate of 30, tidal volume of 450 peep of 12 and FiO2 of 70%. continue to wean FiO2 as possible ABG reviewed. Permissive hypercapnia [place] CT angiogram of the chest 07/14/2021 prominent mediastinal lymph nodes increase compared to prior study 1.5 x 1.4 cm anterior mediastinal node adjacent to the ascending thoracic aorta likely reactive multifocal areas of interstitial thickening and ground-glass opacities again seen mildly increased in size and number pulmonary artery enlarged 4.7 cm, no pulmonary embolism. I have spoken to Dr. Nikolai Self at [facility]. Patient will be transferred today once bed is available. I will hold on getting CT scan of the chest and defer further imaging and testing to the accepting physician team. Request to obtain records from [facility] has been faxed (2) Atrial flutter with rapid ventricular response: Code(s): I48.92 - Unspecified atrial flutter Status: Acute Assessment and Plan: continue Cardizem infusion heart rate is in acceptable range at this time continue Xarelto may need cardioversion (3) COVID-19 long hauler manifesting chronic dyspnea: Code(s): R06.09 - Other forms of dyspnea; U09.9 - Post COVID-19 condition, unspecified Status: Acute Assessment and Plan: patient on home O2 3 L by nasal cannula since since he had COVID last year (4) Community acquired pneumonia: Code(s): J18.9 - Pneumonia, unspecified organism Status: Acute Assessment and Plan: see above (5) Acute on chronic heart failure with preserved ejection fraction: Code(s): I50.33 - Acute on chronic diastolic (congestive) heart failure Status: Acute Assessment and Plan: echo 06/04/2021 EF 55-60% normal RV function mild pulmonary hypertension no significant valvular heart disease no pericardial effusion. symptoms may have been exacerbated by uncontrolled atrial flutter check echocardiogram hold further Lasix at this time (6) KENNEDI (acute kidney injury): C
[2021-08-04] MEDS: FENTANYL 2,500MCG/NS250ML(*CRX 2,500 MCG/250 ML BAG 12.5 MCG IV CONT (15:17)
[2021-08-05 21:39] LABS: Pneumococcal Antigen Urine Not Detected (Not Detected)
[2021-08-07 19:59] LABS: Legionella pneumophila Ag Ur Not Detected (Not Detected)
== END 2021-08-04 15:38 | disposition short-term general hospital (02) | DRG 133 ==
LOC: ANHED 08:20 → ANHIMU 10:00 → ANHICU 08-03 11:51
PROVIDERS: Emergency Medicine; Internal Medicine; Nurse Practitioner Adult Health; Admitting Provider Family Medicine; Emergency Provider Emergency Medicine; Visit Provider Family Medicine
DX: J44.0 Chronic obstructive pulmonary disease with (acute) lower respiratory infection; I50.33 Acute on chronic diastolic (congestive) heart failure; J96.21 Acute and chronic respiratory failure with hypoxia; J18.9 Pneumonia, unspecified organism; Z68.41 Body mass index [BMI] 40.0-44.9, adult; Z99.81 Dependence on supplemental oxygen; R06.09 Other forms of dyspnea; N17.9 Acute kidney failure, unspecified; I48.92 Unspecified atrial flutter; U09.9 Post COVID-19 condition, unspecified; Z20.822 Contact with and (suspected) exposure to COVID-19; I95.9 Hypotension, unspecified; D64.9 Anemia, unspecified; I11.0 Hypertensive heart disease with heart failure; I27.20 Pulmonary hypertension, unspecified; E66.01 Morbid (severe) obesity due to excess calories; K21.9 Gastro-esophageal reflux disease without esophagitis; G47.33 Obstructive sleep apnea (adult) (pediatric); Z79.01 Long term (current) use of anticoagulants; Z79.899 Other long term (current) drug therapy; Z99.89 Dependence on other enabling machines and devices
CPT/HCPCS: 31500; 36415; 36569; 36600; 71045; 80053; 82375; 82550; 82805; 82948; 83050; 83735; 83880; 84145; 84484; 85025; 85027; 85610; 85730; 87040; 87449; 87502; 87899; 93005; 94002; 94003; 94640; 96365; 96367; 96368; 96375; 96376; 99285; A9270; C1751; C8929; C9113; C9803; G0378; G0379; J0330; J0456; J0696; J1940; J1956; J2060; J2250; J2370; J2543; J2930; J3010; J3370; J3475; J7030; J7060; Q9957; U0003; U0005